=== PATIENT | male | born 1960 | race Caucasian/White ===

== ENCOUNTER 2021-03-26 18:20 | Emergency (ER) | payer OTHER ==
[2021-03-26] MEDS ORDERED: Sodium Chloride 0.9% 10 ML Syringe FLUSH PRN (18:21)
--- NOTE | 2021-03-26 18:58 | EDM.PDOC ---
ED HPI GENERAL MEDICAL PROBLEM - General Chief Complaint: Neurological Problem Stated Complaint: LEFT EYE BLURRY, SLURRED SPEACH, CUT THUMB Time Seen by Provider: 03/26/21 18:21 Source of Information: Reports: Patient History Limitations: Reports: No Limitations - History of Present Illness INITIAL COMMENTS - FREE TEXT/NARRATIVE: Matthew is a 61-year-old male presenting to the ED for evaluation of sudden onset of left visual field cut, slurring of his speech, dysfunction of his tongue, and incoordination of the hands causing him to hit the back of his left thumb with a hatchet while trying to debone a deer. The patient's symptoms started around 1530 hrs. today after he shot a deer while hunting. He had guided the deer when he started to note a left visual field cut stating that his "left I went a little wonky". Dated that the left eye specifically seemed like it had extra pixels in the center of his vision making it difficult for him to see. He could make out stuff in the periphery but the central vision was blurred. The patient finished guarding the deer and was pulling it up a hill to the roadside about a mile. He left the deer at the roadside to go get his truck and eat a fig Gonzalez thinking that maybe his sugar was a little low. He noted that the fig gonzalez got stuck between his right molars and his cheek but he could not get his tongue up to get it out so he ended up having to take his finger to put the for gluten back in the middle of his mouth so he could swallow it. He then made some comments to himself out loud and realized that he was al so slurring his speech. He then helped his nephews load the deer into the truck and took a hatchet to take out the pelvic bones and struck the back of his right thumb with a hatchet. The patient is left-handed. The patient states that he is never been inaccurate with the hatchet before so this concerned him and he decided to come in to get evaluated. By the time he arrived to the ER majority of his symptoms had improved including his vision and speech. The patient denies any history of heart disease, hypertension, high cholesterol or family history for stroke or heart disease. He is on no medications. He has no allergies. He has not experienced any symptoms before. The patient does admit that he has been drinking Anjali Aziza at "[employer]" with his nephews and may not have eaten the best over the last day. - Related Data Allergies Allergy/AdvReac Type Severity Reaction Status Date / Time No Known Allergies Allergy Verified 03/26/21 18:36 Home Meds: Home Meds NK [No Known Home Meds] 03/26/21 [History] ED ROS GENERAL - Review of Systems Review Of Systems: See Below Constitutional: Reports: No Symptoms HEENT: Reports: Vision Change (Left visual field cut) Respiratory: Reports: No Symptoms Cardiovascular: Reports: No Symptoms Endocrine: Reports: No Symptoms GI/Abdominal: Reports: No Symptoms : Reports: No Symptoms Musculoskeletal: Reports: No Symptoms Skin: Reports: Wound (Laceration dorsal right thumb) Neurological: Reports: Weakness (Weakness of the tongue and incoordination of the right hand), Change in Speech (Slurring of the speech), Other (Left visual field cut) Psychiatric: Reports: No Symptoms Hematologic/Lymphatic: Reports: No Symptoms Immunologic: Reports: No Symptoms ED EXAM, NEURO - Physical Exam Exam: See Below Exam Limited By: No Limitations General Appearance: Alert, No Apparent Distress, Anxious Eye Exam: Bilateral Eye: EOMI, PERRL Throat/Mouth: Normal Inspection, Normal Oropharynx, Normal Voice, No Airway Compromise Head Exam: Atraumatic, Normocephalic Neck: Normal Inspection, Supple, Non-Tender, Full Range of Motion. No: Carotid Bruit, Lymphadenopathy (R), Lymphadenopathy (L) Respiratory/Chest: No Respiratory Distress, Lungs Clear, Normal Breath Sounds Cardiovascular: Normal Peripheral Pulses, Regular Rate, Rhythm, No Murmur GI/Abdominal: Normal Bowel Sounds, Soft, Non-Tender Neurological: Alert, Normal Mood/Affect, Normal Dorsiflexion, CN II-XII Intact, Normal Plantar Flexion, Normal Gait, Normal Reflexes, No Motor/Sensory Deficits, Oriented x 3 DTR: 2+: Bicep (R), Bicep (L), Tricep (R), Tricep (L), Patella (R), Patella (L) Back Exam: Normal Inspection, Full Range of Motion Extremities: Normal Inspection, Normal Range of Motion Psychiatric: Normal Affect, Normal Mood Skin Exam: Warm, Dry, Intact, Normal Color ED LACERATION PROCEDURES - Laceration/Wound Repair Right Distal Digit - 1st (Thumb) Lac/wound length in cm: 1.2 Appearance: Superficial Distal NVT: Neuro & Vascular Intact Skin Prep: Other (Soap and water) Exploration/Debridement/Repair: Wound Explored, In a Bloodless Field, Explored to Base Closed with: Dermabond Sterile Dressing Applied: Provider Tetanus Status Addressed: Yes Complications: No #1 Interpretation EKG Date: 03/26/21 Time: 18:43 Rhythm: NSR Rate (Beats/Min): 82 [place]: LAD-Left [place] Deviation P-Wave: Present QRS: Normal ST-T: Normal QT: Normal Comparison: NA - No Prior EKG Course - Vital Signs Last Recorded V/S: Last Vital Signs Temp 36.9 C 03/26/21 18:37 Pulse 76 03/26/21 18:37 Resp 18 03/26/21 18:37 BP 140/89 03/26/21 18:37 Pulse Ox 98 03/26/21 18:37 - Orders/Labs/Meds Orders: Active Orders 24 hr Category Date Time Status Assess Neurological Status [RC] CONTINUOUS Care 03/26/21 18:26 Active Blood Glucose Check, Bedside [RC] STAT Care 03/26/21 18:26 Active Cardiac Monitoring [RC] CONTINUOUS Care 03/26/21 18:26 Active Communication Order [RC] STAT Care 03/26/21 18:26 Active Height and Weight [RC] UPON Care 03/26/21 18:26 Active NIH Stroke Scale [RC] Q15M Care 03/26/21 18:26 Active NIH Stroke Scale [RC] STAT Care 03/26/21 18:26 Active Oxygen Therapy, ED [RC] ASDIRECTED Care 03/26/21 18:26 Active Peripheral IV Care [RC] . DIRECTED Care 03/26/21 18:27 Active [place] Bedside Swallow Assessment [RC] ASDIRECTED Care 03/26/21 18:26 Active Sodium Chloride 0.9% [Saline Flush] Med 03/26/21 18:21 Active 10 ml FLUSH ASDIRECTED PRN Peripheral IV Insertion Adult [OM.PC] Stat Oth 03/26/21 18:26 Ordered Peripheral IV Insertion Adult [OM.PC] Stat Oth 03/26/21 18:26 Ordered EKG 12 Lead [EK] Stat Ther 03/26/21 18:26 Ordered Medication Orders Sodium Chloride (Sodium Chloride 0.9% 10 Ml Syringe) 10 ml FLUSH ASDIRECTED PRN PRN Reason: Keep Vein Open Last Admin: 03/26/21 19:06 Dose: 10 ml Documented by: DALIA Labs: Laboratory Tests 03/26/21 03/26/21 03/26/21 Range/Units 18:35 18:35 18:35 WBC 10.3 (4.5-11.0) K/uL RBC 4.60 (4.30-5.90) M/uL Hgb 14.8 (12.0-15.0) g/dL Hct 43.4 (40.0-54.0) % MCV 94 (80-98) fL MCH 32 H (27-31) pg MCHC 34 (32-36) % Plt Count 207 (150-400) K/uL Neut % (Auto) 59.9 (36-66) % Lymph % (Auto) 29.0 (24-44) % [place] % (Auto) 10.2 H (2-6) % Eos % (Auto) 0.7 L (2-4) % Baso % (Auto) 0.2 (0-1) % PT 10.8 H (9.2-10.6) sec INR 1.1 APTT 25.4 (21.4-31.8) sec Sodium 139 L (140-148) mmol/L Potassium 3.6 (3.6-5.2) mmol/L Chloride 102 (100-108) mmol/L Carbon Dioxide 31 (21-32) mmol/L Anion Gap 9.6 (5.0-14.0) mmol/L BUN 20 H (7-18) mg/dL Creatinine 1.1 (0.8-1.3) mg/dL Est Cr Clr Drug Dosing 76.84 mL/min Estimated GFR (MDRD) > 60 (>60) Glucose 91 (74-106) mg/dL Calcium 8.7 (8.5-10.1) mg/dL Total Bilirubin 0.5 (0.2-1.0) mg/dL AST 26 (15-37) U/L ALT 28 (12-78) U/L Alkaline Phosphatase 92 (46-116) U/L Troponin I < 0.017 (0.000-0.056) ng/mL Total Protein 6.9 (6.4-8.2) g/dL Albumin 4.0 (3.4-5.0) g/dL Globulin 2.9 (2.3-3.5) g/dL Albumin/Globulin Ratio 1.4 (1.2-2.2) Meds: Medications Generic Name Dose Route Start Last Admin Trade Name Freq PRN Reason Stop Dose Admin Sodium Chloride 10 ml 03/26/21 18:21 03/26/21 19:06 Sodium Chloride 0.9% 10 Ml Syringe FLUSH 10 ml ASDIRECTED PRN Administration Keep Vein Open - Radiology Interpretation Free Text/Narrative:: I reviewed the CT of the head without contrast as well as the report. The report is as follows: Technique: Multiple contiguous axial images were obtained from the skullbase to the vertex without intravenous contrast enhancement. Please note that all CT scans at this facility use dose modulation, iterative reconstruction, and/or weight-based dosing when appropriate to reduce radiation dose to as low as reasonably achievable. Comparison: None Findings: The ventricles are symmetric and normal in size and morphology. The basal cisterns are widely patent. No intra-axial or extra-axial hemorrhage is identified. No mass, mass effect or midline shift is identified. The bony calvarium is intact. The visualized paranasal sinuses and mastoid air cells are clear. Calcifications are identified within the basal ganglia. Impression: No acute intracranial process. Please note that all CT scans at this facility use dose modulation, iterative reconstruction, and/or weight-based dosing when appropriate to reduce radiation dose to as low as reasonably achievable. Dictated by Tanvi Walls MD @ 03/26/2021 7:20:40 PM - Re-Assessments/Exams Free Text/Narrative Re-Assessment/Exam: 03/26/21 19:51 I reviewed the patient's labs showing a leukocyte count of 10.3, hemoglobin of 14.8, hematocrit of 43.4 and platelet count of 207,000. The patient's comprehensive metabolic panel is normal with a sodium 139, potassium 3.6, chloride 102, bicarbonate 31, BUN of 20 with a creatinine of 1.1 and glucose of 91. The transaminases are normal. Calcium is normal. GFR is calculated greater than 60. Troponin is negative at less than 0.017. EKG shows normal sinus rhythm at a rate of 82. The CT of the head without contrast failed to demonstrate any acute abnormalities. Based on the patient's description this is either an atypical migraine with aura or he had a TIA. I think TIA is more likely given the mix of vision and mouth changes. We will put the patient on a full aspirin daily. As his symptoms have resolved I think he is suitable for discharge home. Indications return to the ED were discussed. Departure - Departure Time of Disposition: 19:55 Disposition: Home, Self-Care 01 Clinical Impression: Transient ischemic attack (TIA) Laceration of right thumb Qualifiers: Encounter type: initial encounter Damage to nail status: without damage Foreign body presence: without foreign body Qualified Code(s): S61.011A - Laceration without foreign body of right thumb without damage to nail, initial encounter - Discharge Information Instructions: Transient Ischemic Attack, [id number], Laceration Care, Adult, [id number] Referrals: PCP,Unknown [Primary Care Provider] - Forms: ED Department Discharge Care Plan Goals: Your work-up today remarkably has not shown that you have had any significant stroke, however, you likely had transient ischemic attack (mini stroke). This is usually due to a small embolic event and is treated with an aspirin a day. So I would like you to take aspirin 325 mg daily this part moving forward. If you have any recurrence of symptoms please return immediately to an ER for evaluation. Sometimes TIAs can be precursors to bigger strokes. Enjoy saut in the back straps of your new kale. The Dermabond on your thumb will dissolve over the course of the next 5 to 6 days. Please do not pick at it. Please keep it dry for the next 24 hours after which time you can wash your hands. Because this occurred when you struck a deer we are going to put you on an antibiotic to prevent infection. This is available in the [email or web address] machine. Sepsis Event Note (ED) - Focused Exam Vital Signs: Vital Signs Temp Pulse Resp BP Pulse Ox 03/26/21 18:37 36.9 C 76 18 140/89 98 03/26/21 18:30 36.9 C 76 18 140/89 98 - Problem List & Annotations (1) Laceration of right thumb SNOMED Code(s): 41160476507186594 Code(s): S61.011A - LACERATION W/O FB OF RIGHT THUMB W/O DAMAGE TO NAIL, INIT Status: Acute Priority: Low Current Visit: Yes Qualifiers: Encounter type: initial encounter Damage to nail status: without damage Foreign body presence: without foreign body Qualified Code(s): S61.011A - Laceration without foreign body of right thumb without damage to nail, initial encounter (2) Transient ischemic attack (TIA) SNOMED Code(s): 997164734 Code(s): G45.9 - TRANSIENT CEREBRAL ISCHEMIC ATTACK, UNSPECIFIED Status: Acute Priority: High Current Visit: Yes - Problem List Review Problem List Initiated/Reviewed/Updated: Yes - My Orders Last 24 Hours: My Active Orders 03/26/21 18:21 Sodium Chloride 0.9% [Saline Flush] 10 ml FLUSH ASDIRECTED PRN 03/26/21 18:26 Assess Neurological Status [RC] CONTINUOUS Blood Glucose Check, Bedside [RC] STAT Cardiac Monitoring [RC] CONTINUOUS Communication Order [RC] STAT Height and Weight [RC] UPON NIH Stroke Scale [RC] Q15M NIH Stroke Scale [RC] STAT Oxygen Therapy, ED [RC] ASDIRECTED [place] Bedside Swallow Assessment [RC] ASDIRECTED Peripheral IV Insertion Adult [OM.PC] Stat Peripheral IV Insertion Adult [OM.PC] Stat EKG 12 Lead [EK] Stat 03/26/21 18:27 Peripheral IV Care [RC] . DIRECTED - Assessment/Plan Last 24 Hours: My Active Orders 03/26/21 18:21 Sodium Chloride 0.9% [Saline Flush] 10 ml FLUSH ASDIRECTED PRN 03/26/21 18:26 Assess Neurological Status [RC] CONTINUOUS Blood Glucose Check, Bedside [RC] STAT Cardiac Monitoring [RC] CONTINUOUS Communication Order [RC] STAT Height and Weight [RC] UPON NIH Stroke Scale [RC] Q15M NIH Stroke Scale [RC] STAT Oxygen Therapy, ED [RC] ASDIRECTED [place] Bedside Swallow Assessment [RC] ASDIRECTED Peripheral IV Insertion Adult [OM.PC] Stat Peripheral IV Insertion Adult [OM.PC] Stat EKG 12 Lead [EK] Stat 03/26/21 18:27 Peripheral IV Care [RC] . DIRECTED
--- NOTE | 2021-03-26 19:21 | CRLCT ---
For Patients: As a result of the Century Cures Act, medical imaging exams and procedure reports are released immediately into your electronic medical record. You may view this report before your referring provider. If you have questions, please contact your health care provider. Indication: Left-sided stroke symptoms. Blurry vision. Technique: Multiple contiguous axial images were obtained from the skullbase to the vertex without intravenous contrast enhancement. Please note that all CT scans at this facility use dose modulation, iterative reconstruction, and/or weight-based dosing when appropriate to reduce radiation dose to as low as reasonably achievable. Comparison: None Findings: The ventricles are symmetric and normal in size and morphology. The basal cisterns are widely patent. No intra-axial or extra-axial hemorrhage is identified. No mass, mass effect or midline shift is identified. The bony calvarium is intact. The visualized paranasal sinuses and mastoid air cells are clear. Calcifications are identified within the basal ganglia. Impression: No acute intracranial process. Please note that all CT scans at this facility use dose modulation, iterative reconstruction, and/or weight-based dosing when appropriate to reduce radiation dose to as low as reasonably achievable. Dictated by Tanvi Walls MD @ 03/26/2021 7:20:40 PM (Electronically Signed)
[2021-03-26] MEDS ORDERED: Aspirin 81 MG Tab.Chew PO ONE (19:53)
== END 2021-03-26 20:29 | disposition home or self-care (01) ==
LOC: JP.ED 18:20
DX: S61.011A Laceration without foreign body of right thumb without damage to nail, initial encounter (principal); G45.9 Transient cerebral ischemic attack, unspecified; W22.09XA Striking against other stationary object, initial encounter
CPT/HCPCS: 12001; 36415; 70450; 80053; 84484; 85025; 85610; 85730; 93005; 99284; A9270

== ENCOUNTER 2023-05-16 23:44 | Emergency (ER) | payer OTHER ==
[2023-05-17 00:26] LABS: BASOPHILS ABSOLUTE AUTO 0.03 K/uL (0.00-0.10); BASOPHILS PERCENT AUTO 0.4 % (0.1-1.3); EOSINOPHILS ABSOLUTE AUTO 0.05 K/uL (0.00-0.40); EOSINOPHILS PERCENT AUTO 0.7 % (0.0-5.4); HEMATOCRIT 47.5 % (38.4-49.7); HEMOGLOBIN 16.2 g/dL (12.9-16.9); IMMATURE GRAN PERCENT AUTO 0.3 % (0.0-0.7); LYMPHOCYTES ABSOLUTE AUTO 1.96 K/uL (0.8-3.3); LYMPHOCYTES PERCENT AUTO 27.7 % (11.4-47.7); MEAN CORPUSCULAR HEMOGLOBIN 32.2 pg (31.6-35.5); MEAN CORPUSCULAR HGB CONC 34.1 g/dL (31.6-35.5); MEAN CORPUSCULAR VOLUME 94.4 fL (81.4-99.0); MONOCYTES ABSOLUTE AUTO 0.55 K/uL (0.20-0.90); MONOCYTES PERCENT AUTO 7.8 % (3.3-12.6); NEUTROPHILS ABSOLUTE AUTO 4.47 K/uL (1.0-7.6); NEUTROPHILS PERCENT AUTO 63.1 % (40.0-78.1); PLATELET COUNT,PLT 198 K/uL (130-375); RED BLOOD CELL COUNT 5.03 M/uL (4.14-5.76); WHITE BLOOD CELL COUNT,WBC 7.1 K/uL (3.2-11.0)
[2023-05-17 00:33] LABS: IMMATURE GRAN ABSOLUTE AUTO 0.02 K/uL (0.00-0.23)
[2023-05-17 00:52] LABS: A/G RATIO 1.2 (1.2-2.2); ALANINE AMINOTRANSFERASE,ALT 29 U/L (12-78); ALBUMIN 4.2 g/dL (3.4-5.0); ALKALINE PHOSPHATASE 87 U/L (46-116); ASPARTATE AMNIOTRANSFERASE,AST 21 U/L (15-37); BILIRUBIN TOTAL 0.2 mg/dL (0.2-1.0); BLOOD UREA NITROGEN,BUN 18 mg/dL (7-18); CALCIUM 8.4 mg/dL (8.5-10.1); CARBON DIOXIDE,CO2 27 mmol/L (21-32); CHLORIDE,CL 104 mmol/L (100-108); EST CRCL DRUG DOSING (CG) 82.83 mL/min; ESTIMATED GFR 84 mL/min (>60); GLUCOSE RANDOM 113 mg/dL (74-106); POTASSIUM,K 3.6 mmol/L (3.6-5.2); PROTEIN TOTAL,TP 7.6 g/dL (6.4-8.2); SODIUM,NA 139 mmol/L (140-148)
[2023-05-17 01:01] LABS: ANION GAP 11.6 mmol/L (5.0-14.0)
[2023-05-17] MEDS ORDERED: Lidocaine 1% with EPINEPHrine 1:100,000 50 ML MDV INJECT ONE (01:33)
[2023-05-17] MEDS ORDERED: Diphtheria,Pertussis(Acell),Tetanus Vaccine 0.5 ML Syringe IM ONE (02:23)
== END 2023-05-17 02:28 ==
LOC: JP.ED 23:44
DX: S01.01XA Laceration without foreign body of scalp, initial encounter (principal); F10.129 Alcohol abuse with intoxication, unspecified; Z86.16 Personal history of COVID-19; W01.0XXA Fall on same level from slipping, tripping and stumbling without subsequent striking against object, initial encounter; Y92.481 Parking lot as the place of occurrence of the external cause; Z23 Encounter for immunization
CPT/HCPCS: 12002; 36415; 70450; 72125; 76377; 80053; 85025; 90471; 90715; 99284-25